=== PATIENT | male | born 1995 | race Two or more races ===

== ENCOUNTER 2022-04-15 07:53 | Outpatient (CLI) | payer OTHER | END 2022-04-15 07:58 | disposition home or self-care (01) | LOC: PPH VACUNA 07:53 | PROVIDERS: ATTEND Emergency Medicine Pediatric Emergency Medicine | DX: Z23 Encounter for immunization (principal) ==

== ENCOUNTER 2023-04-16 09:30 | Outpatient (CLI) | payer OTHER | END 2023-04-16 09:40 | disposition home or self-care (01) | LOC: PPH VACUNA 09:30 | PROVIDERS: ATTEND Emergency Medicine Pediatric Emergency Medicine | DX: Z23 Encounter for immunization (principal) | CPT/HCPCS: 90687; G0008 ==

== ENCOUNTER 2024-06-14 07:40 | Outpatient (CLI) | payer OTHER | END 2024-06-14 07:50 | disposition home or self-care (01) | LOC: PPH VACUNA 07:40 | PROVIDERS: ATTEND Emergency Medicine Pediatric Emergency Medicine | DX: Z23 Encounter for immunization (principal) ==